=== PATIENT | male | born 1970 | race Caucasian/White ===

== ENCOUNTER 2024-12-15 06:26 | Day surgery (SDC) | payer OTHER, SELFPAY | END 2024-12-15 14:59 | disposition home or self-care (01) | LOC: GI 06:26 | PROVIDERS: ATTENDING PHYSICIAN Internal Medicine Gastroenterology | DX: Z12.11 Encounter for screening for malignant neoplasm of colon (principal); R19.5 Other fecal abnormalities; K57.30 Diverticulosis of large intestine without perforation or abscess without bleeding; K64.8 Other hemorrhoids | CPT/HCPCS: G0121 ==

== ENCOUNTER → 2024-12-25 09:47 | Outpatient (REF) | payer OTHER, SELFPAY | LOC: HWRAD 09:47 | PROVIDERS: ATTENDING PHYSICIAN Student in an Organized Health Care Education/Training Program | DX: J01.00 Acute maxillary sinusitis, unspecified (principal) | CPT/HCPCS: 70486 ==